=== PATIENT | female | born 1960 | race Caucasian/White ===

== ENCOUNTER 2016-11-08 11:08 | Observation (INO) | payer OTHER ==
[~2016-11-08] VITALS: Ht 157.5 cm; Wt 53.5 kg
[2016-11-08 12:18] VITALS: BP 187/102
[2016-11-08 13:22] VITALS: BP 186/90
[2016-11-08 17:11] LABS: HEMATOCRIT 40.2 % (36.0-46.0); MCHC 34.6 G/DL (30.0-36.0); MCV 98.3 FL (83-99); MEAN PLAT.VOLUME 9.1 uM^3 (9.5-12.4); PLATELET COUNT 234 K/uL (156-360); RBC DIS.WIDTH-CV 14.1 % (11.8-14.6); RBC DIS.WIDTH-SD 50.6 % (39-53); RED BLOOD COUNT 4.09 M/uL (3.80-5.20); WHITE BLOOD COUNT 17.6 K/uL (4.1-10.2)
[2016-11-08 19:40] VITALS: BP 135/67
[2016-11-08 20:46] LABS: HEMATOCRIT 38.7 % (36.0-46.0); MCH 34.7 PG (29.0-34.0); MCHC 35.9 G/DL (30.0-36.0); MCV 96.5 FL (83-99); MEAN PLAT.VOLUME 9.3 uM^3 (9.5-12.4); PLATELET COUNT 240 K/uL (156-360); RBC DIS.WIDTH-CV 13.8 % (11.8-14.6); RBC DIS.WIDTH-SD 49.1 % (39-53); RED BLOOD COUNT 4.01 M/uL (3.80-5.20)
[2016-11-08 21:10] LABS: ANION GAP 9 MEQ/L (2-14); CHLORIDE 103 MEQ/L (99-109); GFR ESTIMATE (CALCULATED) > 59 mL/min/; GLUCOSE 173 mg/dL (70-99); POTASSIUM 3.2 MEQ/L (3.7-5.4); SAMPLE HEMOLYSIS CHECK 0; SAMPLE ICTERIC CHECK 0; SAMPLE LIPEMIA CHECK 0; SODIUM 135 MEQ/L (136-147); UREA NITROGEN (BUN) 8 mg/dL (9-23)
[2016-11-09] VITALS (7 sets, daily range): BP systolic 133–175; BP diastolic 75–90
[2016-11-09 07:22] LABS: HEMATOCRIT 39.1 % (36.0-46.0); MCHC 35.3 G/DL (30.0-36.0); MCV 96.3 FL (83-99); MEAN PLAT.VOLUME 9.9 uM^3 (9.5-12.4); PLATELET COUNT 292 K/uL (156-360); RBC DIS.WIDTH-SD 49.9 % (39-53); RED BLOOD COUNT 4.06 M/uL (3.80-5.20); WHITE BLOOD COUNT 15.5 K/uL (4.1-10.2)
[2016-11-09 07:53] LABS: ANION GAP 8 MEQ/L (2-14); CHLORIDE 106 MEQ/L (99-109); GFR ESTIMATE (CALCULATED) > 59 mL/min/; SAMPLE HEMOLYSIS CHECK 0; SAMPLE ICTERIC CHECK 0; SAMPLE LIPEMIA CHECK 0; SODIUM 140 MEQ/L (136-147); UREA NITROGEN (BUN) 7 mg/dL (9-23)
[2016-11-09 08:11] LABS: GLUCOSE 115 mg/dL (70-99); POTASSIUM 3.9 MEQ/L (3.7-5.4)
[2016-11-10 03:42] VITALS: BP 134/76
[2016-11-10 07:04] LABS: HEMATOCRIT 44.1 % (36.0-46.0); MCHC 35.8 G/DL (30.0-36.0); MCV 97.8 FL (83-99); MEAN PLAT.VOLUME 9.4 uM^3 (9.5-12.4); PLATELET COUNT 282 K/uL (156-360); RBC DIS.WIDTH-SD 50.9 % (39-53); RED BLOOD COUNT 4.51 M/uL (3.80-5.20); WHITE BLOOD COUNT 14.4 K/uL (4.1-10.2)
[2016-11-10 07:29] LABS: ANION GAP 12 MEQ/L (2-14); CHLORIDE 101 MEQ/L (99-109); GFR ESTIMATE (CALCULATED) > 59 mL/min/; GLUCOSE 101 mg/dL (70-99); POTASSIUM 4.1 MEQ/L (3.7-5.4); SAMPLE HEMOLYSIS CHECK 0; SAMPLE ICTERIC CHECK 0; SAMPLE LIPEMIA CHECK 0; SODIUM 137 MEQ/L (136-147); UREA NITROGEN (BUN) 10 mg/dL (9-23)
[2016-11-10] MEDS ORDERED: TRAMADOL HCL50 MG PO (09:34)
[2016-11-10 11:00] VITALS: BP 162/98
== END 2016-11-10 12:13 | disposition home or self-care (01) ==
LOC: SDC 11:08 → 2SOUTH 16:07 → 2EAST 16:07
PROVIDERS: Anesthesiology; Obstetrics & Gynecology Gynecologic Oncology
DX: N81.3 Complete uterovaginal prolapse (principal); D01.3 Carcinoma in situ of anus and anal canal; F17.210 Nicotine dependence, cigarettes, uncomplicated
CPT/HCPCS: 80048; 85027; 86900; 86901; 86920; 88302; 88305; 88307; 94002; 94640; 94799; G0378; J0171; J0330; J0360; J0690; J1100; J1170; J1650; J2405; J2710; J2765; J3010; J3480